=== PATIENT | male | born 1990 | race Asian ===

== ENCOUNTER 2019-03-23 20:10 | Emergency (ER) | payer OTHER, SELFPAY ==
[2019-03-23 20:12] VITALS: BP 142/85; PULSE 94; RESP 17; TEMP 36.5; O2SAT 100; BMI 22.6
--- NOTE | 2019-03-23 20:19 | EKG12_ITS ---
Test Reason : DIZZINESS Blood Pressure : / mmHG Vent. Rate : 073 BPM Atrial Rate : 073 BPM P-R Int : 164 ms QRS Dur : 090 ms QT Int : 398 ms P-R-T Axes : 074 077 070 degrees QTc Int : 438 ms Normal sinus rhythm Normal ECG Confirmed by EDGARDO ZAYAS, FRANKI ([id number]), supervising editor news reel VILMA LLOYD ([id number]) on 03/27/2019 10:46:40 AM Referred By: LOW BERTRAND Confirmed By:FRANKI REYNOSO MD
[2019-03-23 20:55] LABS: Absolute Lymphocyte Count 0.85 X10^3/uL (0.83-4.51); Absolute Neutrophil Count 16.9 X10^3/uL (2.0-7.7); Basophil# 0.03 X10^3/uL; Basophil% 0.2 % (0-1); Eosinophil# 0.02 X10^3/uL; Eosinophils% 0.1 % (0-5); Hematocrit 44.6 % (40-54); Hemoglobin 13.5 g/dL (13.0-16.5); Lymphocyte # 0.85 X10^3/ul (4.0); Lymphocyte % 4.5 % (19-41); Mean Corp Hgb Conc 30.3 g/dL (32-36); Mean Corpuscular Hgb 20.4 pg (27.0-32.0); Mean Corpuscular Volume 67.3 fL (80-94); Mean Platelet Vol. 9.7 fl (6.2-12.0); Monocyte# 1.11 X10^3/uL; Monocyte% 5.8 % (0-10); NRBC Flagged by Analyzer 0 % (0-5); Neutrophil # 16.88 X10^3/uL (2.7-7.7); Neutrophil % 88.8 % (47-70); Platelet Count 313 K/mm3 (150-450); RBC Distribution Width CV 16.2 % (11.6-14.6); Red Blood Count 6.63 M/mm3 (4.6-6.2)
[2019-03-23 21:10] LABS: Anion Gap 8 (5-15); BUN 10 mg/dL (7-18); BUN/Creat Ratio 9.9 RATIO (10-20); Calcium,Total 9.3 mg/dL (8.5-10.1); Chloride 103 mmol/L (98-107); Creatinine, Serum 1.01 mg/dL (0.70-1.30); EST Glomerular Filtration Rate 93 mL/min (>60); Est Glom Filt Rate - Afr Amer 112 mL/min (>60); Glucose 182 mg/dL (74-106); Potassium 3.6 mmol/L (3.5-5.1); Sodium Level 138 mmol/L (136-145)
--- NOTE | 2019-03-23 22:44 | RAD_ITS ---
STUDY: X-RAY CHEST REASON FOR EXAM: Male, 28 years old. Dizziness, nausea and hyperventilation after liver biopsy today. TECHNIQUE: PA and lateral views of the chest. COMPARISON: Prior comparison studies are not available for review at this time. FINDINGS: Cardiac monitoring leads are present. There is hyperinflation of the lungs consistent with chronic obstructive lung disease (COPD). There is no demonstrated pleural abnormality. Normal size heart. Normal mediastinum and cristobal. Normal visualized pulmonary arteries. Normal visualized aortic arch and descending thoracic aorta. Normal visualized thoracic spine. Normal visualized ribs, clavicles, and shoulders. There is no demonstrated abnormality of the visualized soft tissue structures of the upper abdomen. RAD/Chest PA and Lateral IMPRESSION: COPD without radiographic evidence of acute cardiopulmonary disease. Electronically Signed: Shruthi Edwards MD at 0:25 EDT , Service support ,
--- NOTE | 2019-03-23 22:44 | ED.DCSUM_ITS ---
History of Present Illness Chief Complaint: Dizziness Narrative: Patient is a 28-year-old male who presents with dizziness. He has chronic hepatitis B. His viral levels have been increasing so his household personal assistant wanted to have a liver biopsy done to check for inflammation. At [facility] he had a transjugular liver biopsy today. He was doing well afterwards but when he went to eat dinner a few hours ago he began to feel nauseated he became diaphoretic and felt near syncopal. He did not actually lose consciousness. No vomiting. This resolved. However when he was getting up to get out of the car he had recurrent symptoms and again currently feels better but given 2 episodes wanted to be checked. He does not complain of any abdominal pain. He denies recent illness such as fever cough rhinorrhea. No chest pain or shortness of breath. No history of prior similar symptoms. His medical history is otherwise notable for hypertension. Past Medical History - Allergies and Home Meds Allergies/Adverse Reactions: Allergies No Known Allergies Allergy (Verified 03/23/19 20:10) Primary Care Physician: Tomasz Herzog MD [Primary Care Provider] - Past Medical History: - - Hypertension, hepatitis B Surgical History: - - Liver biopsy Smoking Status: Never smoker Review of Systems All systems negative except as indicated General: Reports: Sweats. Denies: Fever Cardiovascular: Reports: - - Near syncope. Denies: Chest pain Respiratory: Denies: Dyspnea Gastrointestinal: Reports: Nausea. Denies: Abdominal pain, Vomiting, Diarrhea Physical Exam Vital Signs/Narrative: Vital Signs Temp Pulse Resp BP Pulse Ox 03/23/19 20:12 97.7 F L 94 17 142/85 H 100 Inital Vital Signs reviewed: Yes General: Well nourished, Well developed Head: Normocephalic, Atraumatic Eyes: EOMI ENT: Moist mucous membranes Neck: - - Site of venipuncture on the right neck is clean and dry no erythema no bleeding Cardiovascular: Regular rate, Regular rhythm Respiratory: No distress, CTA bilaterally Abdomen: Soft, Nontender Skin: Normal color Neurological: Alert Psychological: Normal affect Diagnostic/Tx/Re-eval Impressions Chest X-Ray 03/23/19 22:44 IMPRESSION: COPD without radiographic evidence of acute cardiopulmonary disease. Electronically Signed: Shruthi Edwards MD at 0:25 EDT , Service support , Abdomen/Pelvis CT 03/23/19 23:48 IMPRESSION: No CT evidence of acute intra-abdominal disease. Electronically Signed: Shruthi Edwards MD at 0:38 EDT , Service support , 03/23/19 22:44 CXR [Chest PA and Lateral] [RAD] Stat 03/23/19 23:48 Abdomen/Pelvis W IV Cont ONLY [CT] Stat Laboratory Results 03/23/19 03/23/19 03/23/19 20:47 20:47 20:47 WBC 19.0 H RBC 6.63 H Hgb 13.5 Hct 44.6 MCV 67.3 L MCH 20.4 L MCHC 30.3 L RDW Std Deviation 35.0 L RDW Coeff of Aurelio 16.2 H Plt Count 313 MPV 9.7 Immature Gran % (Auto) 0.600 Neut % (Auto) 88.8 H Lymph % (Auto) 4.5 L Finney % (Auto) 5.8 Eos % (Auto) 0.1 Baso % (Auto) 0.2 Absolute Neuts (auto) 16.9 H Absolute Lymphs (auto) 0.85 Nucleated RBC % 0 Sodium 138 Potassium 3.6 Chloride 103 Carbon Dioxide 27.0 Anion Gap 8 BUN 10 Creatinine 1.01 Estim Creat Clear Calc 97.80 Est GFR (MDRD) Af Amer 112 Est GFR (MDRD) Non-Af 93 BUN/Creatinine Ratio 9.9 L Glucose 182 H Calcium 9.3 Total Bilirubin 0.40 Direct Bilirubin 0.15 AST 19 ALT 33 Alkaline Phosphatase 80 Total Protein 8.2 Albumin 4.3 Globulin 3.9 Urine Color Urine Clarity Urine pH Ur Specific Shelby Urine Protein Urine Glucose (UA) Urine Ketones Urine Occult Blood Urine Nitrite Urine Bilirubin Urine Urobilinogen Ur Leukocyte Esterase Urine RBC Urine WBC Ur Squamous Epith Cells Urine Bacteria Urine Mucus 03/23/19 23:10 WBC RBC Hgb Hct MCV MCH MCHC RDW Std Deviation RDW Coeff of Aurelio Plt Count MPV Immature Gran % (Auto) Neut % (Auto) Lymph % (Auto) Finney % (Auto) Eos % (Auto) Baso % (Auto) Absolute Neuts (auto) Absolute Lymphs (auto) Nucleated RBC % Sodium Potassium Chloride Carbon Dioxide Anion Gap BUN Creatinine Estim Creat Clear Calc Est GFR (MDRD) Af Amer Est GFR (MDRD) Non-Af BUN/Creatinine Ratio Glucose Calcium Total Bilirubin Direct Bilirubin AST ALT Alkaline Phosphatase Total Protein Albumin Globulin Urine Color Yellow Urine Clarity Clear Urine pH 7.0 Ur Specific Shelby 1.005 Urine Protein Negative Urine Glucose (UA) Normal Urine Ketones Negative Urine Occult Blood Negative Urine Nitrite Negative Urine Bilirubin Negative Urine Urobilinogen Normal Ur Leukocyte Esterase Negative Urine RBC 0-5 SEEN Urine WBC 0-5 SEEN Ur Squamous Epith Cells 0 SEEN Urine Bacteria 0 SEEN Urine Mucus 0 SEEN - Medical Decision Making EKG shows sinus rhythm at a rate of 73. Laboratory studies are notable for white count of 19,000. Chest x-ray CT the abdomen and urinalysis and remainder of labs however all are unremarkable. On reevaluation patient has normal vitals and no complaints. He was advised to monitor for any new or worsening symptoms including but not limited to fever or abdominal pain. He was advised to contact his household personal assistant tomorrow to arrange for close outpatient follow- up. He is in agreement with this plan. All questions answered at bedside and patient discharged. ED Disposition - Plan for ED Patient: Disposition: Home or Assisted Living Diagnosis: Near syncope Referrals: Tomasz Herzog MD [Primary Care Provider] -
[2019-03-23 23:08] LABS: AST(SGOT) 19 U/L (15-37); Alanine Aminotransfer ALT/SGPT 33 U/L (16-61); Albumin, Serum 4.3 g/dL (3.2-5.0); Alkaline Phosphatase 80 U/L (45-117); Bilirubin, Direct 0.15 mg/dL (0.00-0.30); Globulin 3.9 g/dL (2.2-4.2); Protein, Total 8.2 g/dL (6.4-8.2)
[2019-03-23] MEDS: 0.9% Normal Saline 1,000 ML 50 ML IV (23:24)
[2019-03-23 23:26] LABS: Bacteria 0 SEEN /hpf (None Seen); Mucous, Urine 0 SEEN /hpf (<or=2+); Squamous Epithelial Cells - UA 0 SEEN /hpf (0-5)
[2019-03-23 23:28] LABS: Color, Urine Yellow (Yellow); Glucose, Dipstick Normal (Normal); Ketone-Dipstick Negative (Negative); Leukocyte Esterase-Dipstick Negative /ul (Negative); Nitrite-Dipstick Negative (Negative); Occult Blood-Urine Negative /ul (Negative); Protein-Dipstick Negative (Negative); Specific Gravity, Urine 1.005 (1.002-1.030); Urine Bilirubin Dipstick Negative (Negative); Urine Clarity Clear (Clear); Urine Urobilinogen Normal (Normal)
[2019-03-23 23:43] VITALS: BP 131/90; BP 133/86; BP 141/74; PULSE 104; PULSE 108; PULSE 84
[2019-03-23 23:46] LABS: Red Blood Cells-Urine 0-5 SEEN /hpf (0-5); White Blood Cells 0-5 SEEN /hpf (0-5)
--- NOTE | 2019-03-23 23:48 | CT_ITS ---
STUDY: CT ABDOMEN AND PELVIS WITH CONTRAST REASON FOR EXAM: Male, 28 years old. Dizziness and nausea after liver biopsy today. RADIATION DOSAGE (If Supplied By Facility): CTDIvol = ( 21.1 ) mGy, DLP = ( 369.48 ) mGycm TECHNIQUE: Transaxial images were obtained from the dome of the diaphragm to the symphysis pubis without oral contrast. 100mL of IV [id number]-300 was administered. Sagittal and coronal images were reconstructed. Individualized dose optimization techniques were used for this CT. COMPARISON: Prior comparison studies are not available for review at this time. FINDINGS: The visualized lung bases are unremarkable. The visualized portions of the heart are within normal limits. Normal liver. Normal gallbladder and extrahepatic biliary system. Normal spleen. Normal pancreas. Normal bilateral adrenal glands. Normal right kidney. Normal left kidney. Normal visualized stomach. No evidence for dilated bowel, ascites or pneumoperitoneum. Small bowel has a grossly normal appearance. Stool is visible throughout the colon with scattered colonic diverticula. There is non-visualization of the appendix. Normal abdominal aorta. Normal inferior vena cava. Normal retroperitoneum. Normal urinary bladder. Normal visualized prostate gland. Normal abdominal wall. Normal osseous structures. CT/Abdomen/Pelvis W IV Cont ONLY IMPRESSION: No CT evidence of acute intra-abdominal disease. Electronically Signed: Shruthi Edwards MD at 0:38 EDT , Service support ,
[2019-03-24] MEDS: 0.9% Normal Saline 1,000 ML 999 ML IV (01:33)
[2019-03-24 02:46] VITALS: BP 127/86; PULSE 79; RESP 16; O2SAT 100
== END 2019-03-24 02:46 | disposition home or self-care (01) ==
PROVIDERS: Emergency Provider Emergency Medicine; Family Provider Family Medicine; PCP Family Medicine
DX: R42 Dizziness and giddiness (principal); R11.0 Nausea; I10 Essential (primary) hypertension; B18.1 Chronic viral hepatitis B without delta-agent; J44.9 Chronic obstructive pulmonary disease, unspecified; Z79.899 Other long term (current) drug therapy
CPT/HCPCS: 36415; 71046; 74177; 80048; 80076; 81001; 85025; 87040; 93005; 96360; 99285; J7030; Q9967; A4216

== ENCOUNTER → 2019-06-08 06:52 | Outpatient (CLI) | payer OTHER, SELFPAY ==
[2019-05-28 07:26] VITALS: BMI 22.7
--- NOTE | 2019-06-08 16:48 | PFTCOMP_ITS ---
COMPLETE PULMONARY FUNCTION TEST INTERPRETATION Brief HPI: Patient is a 29 year old male, currently under the care of myself, who presents to [facility] for complete pulmonary function tests secondary to diagnosis of cough. Respiratory therapist reports good effort and reproducible results. Interpretation: Forced expiration spirometry shows no large airways obstructive ventilatory defect with an FEV1 of 101% predicted. There is no significant bronchodilator response by strict ATS criteria. Spirograms are of good quality and plateau normally. The respiratory flow volume loop shows a normal pattern. Lung volumes by body plethysmography show a normal total lung capacity at 5.85 L, 95% predicted. All other lung volumes are within normal limits. Diffusion capacity by carbon monoxide is at the upper limit of normal at 115% predicted. The airway resistance is normal. No previous pulmonary function tests were available for review. Impression: These pulmonary function tests are within normal limits.
== END ==
PROVIDERS: Family Provider Family Medicine; PCP Family Medicine; Referring Provider Internal Medicine Critical Care Medicine; Visit Provider Internal Medicine Critical Care Medicine
DX: R05 Cough (principal)
CPT/HCPCS: 94060; 94726; 94729